=== PATIENT | female | born 1990 | race Caucasian/White ===

== ENCOUNTER → 2018-03-28 10:27 | Outpatient (CLI) | payer OTHER, SELFPAY ==
--- NOTE | 2018-03-28 10:32 | US_ITS ---
US OB transvaginal: HISTORY: Evaluate for dates ITS.REASON: US OB TV -DATES ORDERING PHYSICIAN: Tory Martinez MD PATIENT AGE: 27 years COMPARISON: None FINDINGS: The uterus is retroverted. An intrauterine gestational sac is present with a pole with a crown-rump length of 2.51cm correlating to gestational age of 9w2d . heart tones are present with an FHR of 167 bpm's. Yolk sac is noted. The amnion and chorion have not yet fused. Adnexa: Unremarkable. IMPRESSION: Live intrauterine gestation at 9 weeks 2 days as described above. Estimated due date by ultrasound is 10/29/2018
== END ==
PROVIDERS: PCP Obstetrics & Gynecology; Visit Provider Obstetrics & Gynecology
DX: O26.841 Uterine size-date discrepancy, first trimester (principal)
CPT/HCPCS: 76830

== ENCOUNTER → 2018-04-17 08:49 | Outpatient (CLI) | payer OTHER, SELFPAY ==
[2018-04-17 09:40] LABS: Basophils % 0.3 % (0.1-2.0); Eosinophils % 0.2 % (0.1-12.0); Hematocrit 37.4 % (37.0-47.0); Hemoglobin 12.7 g/dL (12.2-16.2); Lymphocytes # 1.8 K/mm3 (0.7-4.5); Lymphocytes % 20.3 K/mm3 (10-50); Mean Corpuscular HGB Conc 33.9 g/dL (31.8-35.4); Mean Corpuscular Hemoglobin 30.9 pg (27.0-31.2); Mean Corpuscular Volume 91.2 fl (81-99); Monocytes # 0.2 K/mm3 (0.1-1.0); Monocytes % 2.7 % (1.7-9.3); Neutrophils # 6.8 K/mm3 (1.8-7.8); Neutrophils % 76.4 % (37.0-80.0); Platelet Count 213 K/mm3 (142-424); White Blood Count 8.9 K/mm3 (4.8-10.8)
[2018-04-18 16:43] LABS: HIV Screen 4th Generation wRfx Non Reactive (Non Reactive); Hepatitis B Surface Antigen Negative (Negative); Hepatitis C Antibody <0.1 s/co ratio (0.0-0.9); Rapid Plasma Reagin Ab Titer Non Reactive (NonRea<1:1); Rubella Antibodies, IgG 2.87 index (Immune >0.99)
== END ==
PROVIDERS: PCP Obstetrics & Gynecology; Visit Provider Obstetrics & Gynecology
DX: Z34.90 Encounter for supervision of normal pregnancy, unspecified, unspecified trimester (principal)
CPT/HCPCS: 36415; 85025; 86592; 86703; 86762; 86850; 87340; 87380; G0432

== ENCOUNTER → 2018-06-26 13:00 | Outpatient (CLI) | payer OTHER, SELFPAY ==
--- NOTE | 2018-06-26 13:02 | US_ITS ---
US OB /maternal detail: INDICATION: ITS.REASON: US OB Complete ORDERING PHYSICIAN: Tory Martinez MD PATIENT AGE: 28 years TECHNIQUE: ultrasound transabdominal scanning. COMPARISON: No previous relevant studies. FINDINGS: Single viable intrauterine gestation. Breech position. Placenta: Anterior placenta grade 1. There is average amount fluid. The cervix appears satisfactory. Closed and measuring 3 cm in length. Complete survey performed and was unremarkable on the submitted images as in PACS. No discrete anomalies identified on survey imaging by technologist. Active fetus. Three-vessel cord with satisfactory umbilical cord insertion. 4- chamber heart noted. Survey of brain & ventricles unremarkable. Face and neck survey unremarkable. Diaphragm and chest views unremarkable. Abdomen: Both kidneys noted and unremarkable. Stomach noted and satisfactory. Spine: Survey of the spine satisfactory with no anomalies identified nor imaged. Both arms and legs noted. Amniotic Fluid: Adequate. Maternal adnexa: No significant findings. Measurements: Average ultrasound age 22w1d. Gestational Age 22w1d. Estimated due date by ultrasound age 0210/29/2018. Estimated weight 478 grams. BPD = 22w0d OFD = 22w4d HC = 21w5d AC = 22w2d FL = 22w1d Growth Percentile= 43% Heart Rate = 155 Cerebellum = 2ww2d Humerus = 22w2d HC/AC is 1.12 (1.06-1.25). CI is 76% (70-86%). FL/BPD is 72%. FL/AC is 22% (20-24%). IMPRESSION: There is a single live fetus in breech presentation. Heart and body motion noted. All parameters correlate with an average ultrasound age of 22 weeks and 1 day and an estimated due date 10/29/2018. No obvious anomalies. Please see above for detail. The placenta is anterior and grade 1 with no evidence of previa
== END ==
PROVIDERS: PCP Obstetrics & Gynecology; Visit Provider Obstetrics & Gynecology
DX: Z36.0 Encounter for antenatal screening for chromosomal anomalies (principal)
CPT/HCPCS: 76811